=== PATIENT | female | born 1965 | race Caucasian/White ===

== ENCOUNTER 2018-05-30 09:44 | Day surgery (SDC) | payer OTHER ==
[2018-05-30] VITALS (14 sets, daily range): BP systolic 110–144; BP diastolic 61–80; PULSE 76–104; RESP 13–18; Ht 165.1 cm; Wt 83.2 kg
[~2018-05-30] VITALS: Ht 165.1 cm; Wt 83.2 kg
[2018-05-30] MEDS ORDERED: OMEP40CA6 PO (10:38)
[2018-05-30] MEDS ORDERED: LEVO75TA65 PO (10:38)
[2018-05-30] MEDS ORDERED: LACTATED RINGER'S 1,000 ML IV SCH (11:00)
[2018-05-30] MEDS ORDERED: morphine 2 MG INJ IV STA (12:06)
--- NOTE | 2018-05-30 12:25 | HPN ---
Date/Time of Note Date/Time of Note DATE: 05/30/18 TIME: 12:25 Interval H&P Admission Note Pt. seen H&P reviewed: No system changes AYANA AGUILAR MD May 30, 2018 12:25
--- NOTE | 2018-05-30 12:27 | SIPON ---
Date/Time of Note Date/Time of Note DATE: 05/30/18 TIME: 12:25 Operative Report Preoperative Diagnosis 1. Deviated septum. 2. Nasal valve dysfunction 3. Turbinate hypertrophy Postoperative Diagnosis Same Operation/Procedure Performed 1. Nasal valve repair with operating room manager grafts. 2. Septoplasty 3. Inferior turbinate reduction 4. [place] of septal cartilage Surgeon see signature line visitor service assistant None Anesthesia: general Estimated blood loss: minimal Transfusion Required none Specimen Nasal septum Grafts/Implants none Complications none AYANA AGUILAR MD May 30, 2018 12:27
[2018-05-30] MEDS ORDERED: ONDANSETRON 4 MG INJ IV PRN ×3 (12:30→16:30)
--- NOTE | 2018-05-30 12:32 | OPR ---
Date/Time of Note Date/Time of Note DATE: 05/30/18 TIME: 12:27 Operative Report Procedure Date: May 30, 2018 Preoperative Diagnosis 1. Deviated septum 2. Nasal valve dysfunction 3. Turbinate hypertrophy Postoperative Diagnosis Same Operation/Procedure Performed 1. Nasal valve repair with integrated logistics support manager grafts. 2. Septoplasty 3. Inferior turbinate reduction 4. [place] of septal cartilage Surgeon see signature line Weatherization Administrator None Anesthesia Type: general Anesthesiologist: TANIYA GUTHRIE MD Estimated Blood Loss: minimal Transfusion none Specimen Septum Grafts/Implants none Complications none Pt Condition Post Procedure: stable Disposition: PACU Indications The patient is a 53-year-old female with a history of chronic nasal obstruction which has been refractory to medical management. The risks, benefits and alternatives of surgery were discussed with the patient which included but not limited to bleeding, infection, scar, need for further surgery, no improvement in symptoms, septal perforation, numbness to the upper teeth and change in appearance of nose. She understood this and signed consent. Procedure Description After informed consent was obtained, the patient was brought back to operating room. She was intubated by anesthesia and sedated. The bed was turned 90 degrees her eyes were protected and a head drape was placed and Abdoul-Synephrine soaked cottonoids were inserted to nasal cavities and left for several minutes and then removed. 1% lidocaine with epinephrine was then injected into the nasal septum and inferior turbinates. 15 blade was used to make a left hemitransfixion incision. Mucoperichondrial flap was elevated. The bony cartilaginous junction was disarticulated with a Sheridan elevator. An inferior p ortion of quadrangular cartilage was harvested for future use of grafting. I then removed deviated portions of quadrangular cartilage and vomer bone until the septum was straight. A 1-1/2 cm caudal and dorsal strut was not violated. A stab incision was made in front of both nasal valve regions. A Katarina elevator was used to create a tight pocket between the septum and the upper lateral cartilage on both sides for integrated logistics support manager graft placement. 2 integrated logistics support manager grafts were created measuring 2 x 15 mm. These were snugly inserted into the pockets and then the incisions closed with 4-0 chromic suture. The hemitransfixion incision was also closed with 4-0 chromic suture. A stab incision was made under the heads of both inferior turbinates. Mucoperiosteal flaps were elevated bilaterally. Inferior turbinate bone was removed with Saleem forceps. Bipolar cautery was applied were needed. Silastic Johnson splints coated in antibiotic ointment were placed bilaterally and secured with 3-0 Prolene suture. The stomach was then suctioned. The patient was extubated by anesthesia and brought to the recovery room in stable condition. AYANA AGUILAR MD May 30, 2018 12:32
[2018-05-30] MEDS ORDERED: LIDOCAINE 1%/EPI (1:100,000) (MDV) 20 ML ONE (15:15)
[2018-05-30] MEDS ORDERED: OXYMETAZOLINE 0.05% 15 ML NAS SPRAY NASAL ONE (15:15)
[2018-05-30] MEDS ORDERED: NEOMYC/POLYMYX/BACIT 30 GM OINT ONE (15:16)
--- NOTE | 2018-05-30 15:20 | PREAC ---
Date/Time of Note Date/Time of Note DATE: 05/30/18 TIME: 15:18 Anesthesia Eval and Record Evaluation Time Pre-Procedure Interview DATE: 05/30/18 TIME: 15:18 Age 53 Sex female NPO: 8 hrs Preoperative diagnosis Septum deviation Planned procedure Septoplasty Past Medical History Past Medical History: Includes Endo: Hypothyroid GI: GERD, Obesity Surgery & Anesthesia Issues No known issue Meds Anticoagulation: No Beta Shaheed within 24 hr: No Reason Beta Shaheed not given: Pt. not on B-Shaheed Reported Medications Levothyroxine Sodium* (Levoxyl*) 75 Mcg Tablet, 75 MCG PO BEFORE BREAKFAST, #30 TAB 05/30/18 Omeprazole* (Omeprazole*) 40 Mg Capsule.dr, 40 MG PO DAILY, #30 CAP 05/30/18 Current Medications Lactated Ringer's 1,000 ml @ 30 mls/hr Q24H IV ; Start 05/30/18 at 11:00 Ondansetron HCl (Zofran Inj) 4 mg ONCE PRN IV NAUSEA AND/OR VOMITING Last administered on 05/30/18at 12:25; Admin Dose 4 MG; Start 05/30/18 at 12:30; Stop 05/30/18 at 18:00 Meds reviewed: Yes Allergies Coded Allergies: Penicillins (Verified Allergy, Unknown, 05/30/18) Allergies Reviewed: Yes Labs/Studies Labs Reviewed: Reviewed by anesthesiologist test: Negative Studies: ECG Pre-procedure Exam Last vitals Vital Signs Date Temp Pulse Resp B/P (MAP) Pulse Ox O2 O2 Flow FiO2 Time Delivery Rate 05/30/18 97.7 76 18 144/80 99 Room Air 10:53 (101) Airway: Adequate mouth opening, Adequate thyromental dist Mallampati: Mallampati II Teeth: Normal Lung: Normal Heart: Normal ASA Physical Status ASA physical status: 3 Emergency: None Planned Anesthetic General/MAC: ETT Planned Pain Management Parenteral pain med Pre-operative Attestations Prior to commencing anesthesia and surgery, the patient was re-evaluated, there was verification of: *The patient's identity *The results of appropriate recent lab work and preoperative vital signs *The above evaluation not changing prior to induction *Anesthetic plan, risk benefits, alternative and complications discussed with patient/family; questions answered; patient/family understands, accepts and wishes to proceed. TANIYA GUTHRIE MD May 30, 2018 15:20
[2018-05-30] MEDS ORDERED: MIDAZOLAM 1 MG/ML 2 ML INJ ONE (15:23)
[2018-05-30] MEDS ORDERED: FENTAnyl 50 MCG/ML VIAL ONE (15:23)
[2018-05-30] MEDS ORDERED: hydrALAzine 20 MG INJ ONE (16:00)
[2018-05-30] MEDS ORDERED: ONDANSETRON 4 MG INJ ONE (16:15)
[2018-05-30] MEDS ORDERED: GLYCOPYRROLATE 0.4 MG INJ ONE (16:18)
[2018-05-30] MEDS ORDERED: NEOSTIGMINE 10 MG INJ ONE (16:18)
[2018-05-30] MEDS ORDERED: PROPOFOL 20 ML ONE (16:18)
[2018-05-30] MEDS ORDERED: LIDOCAINE 2% (SDV) 5 ML INJ ONE (16:18)
[2018-05-30] MEDS ORDERED: ROCURONIUM 50 MG INJ ONE (16:18)
[2018-05-30] MEDS ORDERED: CEFAZOLIN 1 GM INJ ONE (16:18)
--- NOTE | 2018-05-30 16:28 | PAC ---
Date/Time of Note Date/Time of Note DATE: 05/30/18 TIME: 16:27 Post-Anesthesia Notes Post-Anesthesia Note Last documented vital signs Vital Signs Date Temp Pulse Resp B/P (MAP) Pulse Ox O2 O2 Flow FiO2 Time Delivery Rate 05/30/18 97.7 76 18 144/80 99 Room Air 10:53 (101) Activity: WNL Respiratory function: WNL Cardiovascular function: WNL Mental status: Baseline Pain reasonably controlled: Yes Hydration appropriate: Yes Nausea/Vomiting absent: Yes Comments BP:134/56, P:84, spo2:100%, T:98,8 TANIYA GUTHRIE MD May 30, 2018 16:28
[2018-05-30] MEDS ORDERED: MEPERIDINE 25 MG INJ IV PRN (16:30)
[2018-05-30] MEDS ORDERED: DIPHENHYDRAMINE 50 MG INJ IV PRN (16:30)
[2018-05-30] MEDS ORDERED: HYDROmorphONE 1 MG/5 ML IV SYRINGE IV PRN (16:30)
[2018-05-30] MEDS ORDERED: METOCLOPRAMIDE 10 MG INJ IV PRN (16:30)
[2018-05-30] MEDS ORDERED: LABETALOL HCL 20MG INJ IV PRN (16:30)
[2018-05-30] MEDS: FENTAnyl 50 MCG/ML VIAL IV PRN ×2 (16:47→17:04)
[2018-05-30] MEDS: HYDROmorphONE 1 MG/5 ML IV SYRINGE IV PRN ×2 (16:49→17:04)
== END 2018-05-30 18:00 | disposition home or self-care (01) ==
LOC: SDS 09:44
PROVIDERS: ATTEND Otolaryngology
DX: J34.3 Hypertrophy of nasal turbinates (principal); J34.89 Other specified disorders of nose and nasal sinuses; J34.2 Deviated nasal septum; K21.9 Gastro-esophageal reflux disease without esophagitis; E66.9 Obesity, unspecified
CPT/HCPCS: 20912; 30140; 30465; 30520; J0360; J0690; J1170; J2175; J2250; J2270; J2405; J2710; J3010; Z7610; 84703; 88300